=== PATIENT | female | born 1960 | race Caucasian/White ===

== ENCOUNTER → 2017-08-15 | Outpatient (CLI) | payer BC | LOC: M ADAMS 10:54 | DX: S52.501A Unspecified fracture of the lower end of right radius, initial encounter for closed fracture (principal); S52.614A Nondisplaced fracture of right ulna styloid process, initial encounter for closed fracture; M19.031 Primary osteoarthritis, right wrist; M25.562 Pain in left knee; M85.862 Other specified disorders of bone density and structure, left lower leg; R93.6 Abnormal findings on diagnostic imaging of limbs | CPT/HCPCS: 73100 ==